=== PATIENT | female | born 1970 | race Caucasian/White ===

== ENCOUNTER → 2017-12-27 09:54 | Outpatient (CLI) | payer OTHER, SELFPAY ==
[2017-12-27 12:38] LABS: HIV - WCH Non-Reactive (Nonreactive)
[2017-12-27 14:52] LABS: Chlamydia Trachomatis by PCR Negative (Negative); Neisserai gonorrhoeae by PCR Negative (Negative); Probe Check PASS; Sample Adequacy Control PASS; Specimen Processing Control PASS
[2017-12-28 11:18] LABS: HEPATITIS B SURFACE AG Negative (Negative); HSV 1 IgG < 0.91 index (0.00-0.90); HSV 2 IgG > 23.60 index (0.00-0.90)
[2018-01-01 11:27] LABS: HPV Reflexed? NOT INDICATED
[2018-01-03 02:33] LABS: Rapid Plasmin Reagin (RPR) NONREACTIVE (NONREACTIVE)
== END ==
PROVIDERS: Visit Provider Obstetrics & Gynecology
DX: Z12.4 Encounter for screening for malignant neoplasm of cervix (principal); Z11.3 Encounter for screening for infections with a predominantly sexual mode of transmission
CPT/HCPCS: 36415; 86592; 86695; 86696; 86703; 87340; 87491; 87591; 88175; G0145

== ENCOUNTER → 2017-12-27 10:35 | Outpatient (CLI) | payer OTHER, SELFPAY ==
--- NOTE | 2017-12-27 10:39 | BI_ITS ---
MAMMOGRAPHY - BILATERAL SCREENING 3-D NILS SYNTHESIS REASON FOR EXAM: Female, 47 years old. Bilateral Screening 3-D tomosynthesis PERTINENT HISTORY: No significant family history. TECHNIQUE: 2-D mammograms and 3-D Nils synthesis of the breast (s) were performed. CAD was performed. COMPARISON: None. FINDINGS: The breast composition is heterogeneously dense that can obscure small breast masses. No dense spiculated masses or suspicious microcalcifications are identified. No architectural distortion is identified. There is no skin thickening or retraction. There has been no significant change since the prior study. BI/SCREENING MAMM (CAD), BILAT IMPRESSION: No mammographic signs of malignancy. Routine yearly mammograms recommended. ASSESSMENT CATEGORY: BIRADS Category 1: Negative. A letter regarding these results will be sent to the patient by the facility within 30 days. FOLLOW UP RECOMMENDATION: Yearly follow up mammogram recommended. (A) Approximately 10% of breast cancers are not detected by mammography. A normal mammogram should not delay biopsy of a clinically suspicious abnormality. Electronically Signed: Maciel Byrd MD at 16:10 EDT , Service support ,
== END ==
PROVIDERS: Visit Provider Obstetrics & Gynecology
DX: Z12.31 Encounter for screening mammogram for malignant neoplasm of breast (principal)
CPT/HCPCS: 77063; 77067

== ENCOUNTER → 2018-01-07 18:36 | Outpatient (CLI) | payer OTHER, SELFPAY ==
[2018-01-11 11:15] LABS: HPV Reflexed? NOT INDICATED
== END ==
PROVIDERS: Visit Provider Obstetrics & Gynecology
DX: Z12.4 Encounter for screening for malignant neoplasm of cervix (principal)
CPT/HCPCS: 88175; G0145

== ENCOUNTER → 2018-07-07 10:03 | Outpatient (CLI) | payer OTHER, SELFPAY ==
[2018-07-07 10:53] LABS: Anion Gap 8 (5-15); BUN 14 mg/dL (7-18); BUN/Creat Ratio 18.2 RATIO (10-20); Calcium,Total 8.7 mg/dL (8.5-10.1); Chloride 106 mmol/L (98-107); Creatinine, Serum 0.77 mg/dL (0.55-1.02); EST Glomerular Filtration Rate 86 mL/min (>60); Est Glom Filt Rate - Afr Amer 104 mL/min (>60); Free T3 2.5 pg/mL (2.18-3.98); Glucose 91 mg/dL (74-106); Potassium 4.5 mmol/L (3.5-5.1); Sodium Level 142 mmol/L (136-145); Thyroid Stim Hormone (TSH) 0.91 uIU/mL (0.358-3.74)
== END ==
LOC: LAB 10:07
PROVIDERS: Family Provider Nurse Practitioner Family; PCP Nurse Practitioner Family; Referring Provider Nurse Practitioner; Visit Provider Nurse Practitioner
DX: E03.9 Hypothyroidism, unspecified (principal); R53.81 Other malaise; R53.82 Chronic fatigue, unspecified
CPT/HCPCS: 36415; 80048; 84439; 84443; 84481

== ENCOUNTER → 2020-07-15 09:31 | Outpatient (CLI) | payer OTHER, SELFPAY ==
[2020-07-15 09:09] VITALS: BMI 26.5
[2020-07-15 12:22] LABS: Absolute Lymphocyte Count 0.83 X10^3/uL (0.83-4.51); Absolute Neutrophil Count 2.3 X10^3/uL (2.0-7.7); Basophil# 0.01 X10^3/uL; Basophil% 0.3 % (0-1); Eosinophil# 0.03 X10^3/uL; Eosinophils% 0.9 % (0-5); Hematocrit 42.6 % (37-47); Hemoglobin 13.5 g/dL (12.0-15.0); Lymphocyte # 0.83 X10^3/ul (4.0); Lymphocyte % 24.5 % (19-41); Mean Corp Hgb Conc 31.7 g/dL (32-36); Mean Corpuscular Hgb 30.2 pg (27.0-32.0); Mean Corpuscular Volume 95.3 fL (81-99); Mean Platelet Vol. 10.3 fl (6.2-12.0); Monocyte# 0.26 X10^3/uL; Monocyte% 7.7 % (0-10); NRBC Flagged by Analyzer 0 % (0-5); Neutrophil # 2.25 X10^3/uL (2.7-7.7); Neutrophil % 66.3 % (47-70); Platelet Count 301 K/mm3 (150-450); RBC Distribution Width CV 12.5 % (11.6-14.6); RBC Distribution Width SD 44.3 fl (35.1-43.9); Red Blood Count 4.47 M/mm3 (4.2-5.4); White Blood Count 3.4 K/mm3 (4.4-11.0)
[2020-07-15 12:26] LABS: AST(SGOT) 10 U/L (15-37); Alanine Aminotransfer ALT/SGPT 17 U/L (13-56); Albumin, Serum 3.6 g/dL (3.2-5.0); Alkaline Phosphatase 65 U/L (45-117); Anion Gap 5 (5-15); BUN 14 mg/dL (7-18); BUN/Creat Ratio 19.2 RATIO (10-20); Calcium,Total 8.6 mg/dL (8.5-10.1); Chloride 106 mmol/L (98-107); Cholesterol 190 mg/dL (200); Creatinine, Serum 0.73 mg/dL (0.55-1.02); EST Glomerular Filtration Rate 91 mL/min (>60); Est Glom Filt Rate - Afr Amer 110 mL/min (>60); Globulin 3.5 g/dL (2.2-4.2); Glucose 92 mg/dL (74-106); High Density Lipoprotein 61 mg/dL; Potassium 4.2 mmol/L (3.5-5.1); Protein, Total 7.1 g/dL (6.4-8.2); Sodium Level 139 mmol/L (136-145); T4 Free Direct 1.48 ng/dL (0.76-1.46); Thyroid Stim Hormone (TSH) 7.69 uIU/mL (0.358-3.74); Triglycerides 126 mg/dL; Very Low Density Lipoprotein 25 mg/dL (5-40)
== END ==
LOC: BIMLAB 09:33
PROVIDERS: PCP Nurse Practitioner Family; Referring Provider Internal Medicine Endocrinology, Diabetes & Metabolism; Visit Provider Internal Medicine Endocrinology, Diabetes & Metabolism
DX: E03.9 Hypothyroidism, unspecified (principal)
CPT/HCPCS: 36415; 80053; 80061; 84439; 84443; 85025

== ENCOUNTER → 2020-12-16 | Outpatient (CLI) | payer OTHER, SELFPAY ==
[2020-07-15 09:09] VITALS: BMI 26.5
[2020-12-19 07:06] LABS: Chlamydia By Nucleic Acid AMP Negative (Negative)
[2020-12-19 16:31] LABS: Gonococcus By Nucleic Acid AMP Negative (Negative)
[2020-12-20 09:43] LABS: HPV APTIMA, High Risk Negative (Negative)
== END | disposition home or self-care (01) ==
LOC: LABSPEC 11:07
PROVIDERS: PCP Nurse Practitioner Family; Visit Provider Obstetrics & Gynecology
DX: Z12.4 Encounter for screening for malignant neoplasm of cervix (principal)
CPT/HCPCS: 87491; 87591; 87624; 88175; G0145

== ENCOUNTER → 2020-12-29 08:44 | Outpatient (CLI) | payer OTHER, SELFPAY ==
[2020-07-15 09:09] VITALS: BMI 26.5
[2020-12-29 10:03] LABS: Hemoglobin A1c 5.2 % (3.8-5.6)
[2020-12-29 10:09] LABS: Cholesterol 217 mg/dL (200); High Density Lipoprotein 64 mg/dL; Triglycerides 77 mg/dL; Very Low Density Lipoprotein 15 mg/dL (5-40)
[2020-12-29 12:05] LABS: HIV - WCH Non-Reactive (Nonreactive); Hepatitis B Surface Antigen Non-Reactive (Nonreactive); Hepatitis C Antibody Non-Reactive (Nonreactive); Syphilis Antibodies Non-reactive
== END ==
LOC: LAB 08:48
PROVIDERS: PCP Nurse Practitioner Family; Referring Provider Obstetrics & Gynecology; Visit Provider Obstetrics & Gynecology
DX: Z01.89 Encounter for other specified special examinations (principal)
CPT/HCPCS: 36415; 80061; 83036; 86703; 86780; 86803; 87340

== ENCOUNTER → 2021-01-16 | Outpatient (CLI) | payer OTHER, SELFPAY ==
[2020-07-15 09:09] VITALS: BMI 26.5
== END | disposition home or self-care (01) ==
LOC: LABSPEC 13:48
PROVIDERS: PCP Nurse Practitioner Family; Visit Provider Obstetrics & Gynecology
DX: N39.46 Mixed incontinence (principal)
CPT/HCPCS: 87077; 87086; 87088

== ENCOUNTER → 2021-02-16 17:20 | Outpatient (CLI) | payer OTHER, SELFPAY ==
[2020-07-15 09:09] VITALS: BMI 26.5
--- NOTE | 2021-02-16 16:26 | BI_ITS ---
MAMMOGRAPHY - BILATERAL SCREENING REASON FOR EXAM: Female, 50 years old. Routine annual screening examination. PERTINENT HISTORY: Non-contributory. TECHNIQUE: Digital bilateral breast nils (3D mammographic acquisition) in the CC and MLO projections. 2-D mediolateral oblique (MLO) and craniocaudad (CC) views of both breasts were obtained. CAD: Full Field Digital Mammography with Computer Added Detection was performed. COMPARISON: Comparison is made with prior study dated 12/27/2017. FINDINGS: Breast Composition: The breasts are heterogeneously dense, which may obscure small masses. I suspect a 1.8 cm x 1.8 cm well-defined nodule in the central deep portion of the left breast. I also suspect a 1.4 cm well-defined nodule in the deep central portion of the right breast. Correlation with ultrasound is recommended. No other significant abnormalities are identified. BI/SCRN MAMM (CAD)W/NILS BILAT IMPRESSION: Findings suggestive of well-defined nodules in the central deep portions of both breasts as described. Correlation with ultrasound is recommended. ASSESSMENT CATEGORY: BIRADS Category 0: Incomplete. Need additional imaging evaluation. A letter regarding these results will be sent to the patient by the facility within 30 days. Approximately 10% of breast cancers are not detected by mammography. A normal mammogram should not delay biopsy of a clinically suspicious abnormality. [id number] Electronically Signed: Lane Moreland MD at 8:18 EDT , Service support ,
== END ==
PROVIDERS: Referring Provider Obstetrics & Gynecology; Visit Provider Obstetrics & Gynecology
DX: Z12.31 Encounter for screening mammogram for malignant neoplasm of breast (principal)
CPT/HCPCS: 77063; 77067

== ENCOUNTER → 2021-03-08 12:50 | Outpatient (CLI) | payer OTHER, SELFPAY ==
[2020-07-15 09:09] VITALS: BMI 26.5
--- NOTE | 2021-03-08 12:58 | US_ITS ---
STUDY: ULTRASOUND BREAST - RIGHT REASON FOR EXAM: Female, 50 years old. Abnormal screening mammogram. TECHNIQUE: Axial and longitudinal images of the RIGHT breast were performed with a high resolution ultrasound transducer. # OF IMAGES: 16 COMPARISON: Comparison is made with prior mammogram dated 02/16/2021. FINDINGS: RIGHT Breast: The mammographic abnormality corresponds to a 1.6 cm x 1.8 cm x 1 cm cyst at the 8 o''clock position of the breast at 3 cm from the nipple. IMPRESSION: 1.6 cm x 1.8 cm x 1 cm cyst at the 8 o''clock position of the breast at 3 cm from the nipple. ASSESSMENT CATEGORY: BIRADS Category 2: Benign. A letter regarding these results will be sent to the patient by the facility within 30 days. Electronically Signed: Lane Moreland MD at 15:52 EDT , Service support , STUDY: ULTRASOUND BREAST - LEFT REASON FOR EXAM: Female, 50 years old. Abnormal screening mammogram. TECHNIQUE: Axial and longitudinal images of the LEFT breast were performed with a high resolution ultrasound transducer. # OF IMAGES: 16 COMPARISON: Comparison is made with prior mammogram dated 02/16/2021. FINDINGS: LEFT Breast: The mammographic abnormality corresponds to a 1.8 cm x 1.8 cm x 0.8 cm cyst in the retroareolar region. US/Breast Limited Unilateral IMPRESSION: 1.8 cm x 1.8 cm x 0.8 cm cyst in the retroareolar region of the breast. ASSESSMENT CATEGORY: BIRADS Category 2: Benign. A letter regarding these results will be sent to the patient by the facility within 30 days. Electronically Signed: Lane Moreland MD at 15:53 EDT , Service support ,
== END ==
LOC: OPUS 12:51
PROVIDERS: Referring Provider Obstetrics & Gynecology; Visit Provider Obstetrics & Gynecology
DX: R92.2 Inconclusive mammogram (principal)
CPT/HCPCS: 76642

== ENCOUNTER 2021-04-13 07:39 | Day surgery (SDC) | payer OTHER, SELFPAY ==
[2020-07-15 09:09] VITALS: BMI 26.5
[2021-04-13] VITALS (11 sets, daily range): BP systolic 103–125; BP diastolic 61–85; PULSE 55–76; RESP 16–18; TEMP 36.3–36.6; O2SAT 96–100; BMI 27.3
--- NOTE | 2021-04-13 08:20 | HP.PCM.OB_ITS ---
History and Physical Date of Admission: 04/13/21 Surgical History and Physical Date: 04/13/2021 Name: ROSETTA NINA Age: 50 Date of : 1970 Rosetta Nina, a 50 year old female 2 0 0 0 2, presents for Transvaginal tape, cystoscopy, possible anterior repair, possible posterior repair on April 13, 2021 at 8:30. -- Pt reports inability to hold urine in for the past 3-4 months.. Denies drug use and smoking. No changes in her health since last visit. Scheduled for tape sling, cysto, possible A &/or P repair. Consents signed. No changes in her health since her last visit. MEDICATIONS HISTORY: Patient is also takin. 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); Review of Systems: GENERAL - Denies fever, or chills SKIN - Denies skin changes EYES - Denies visual changes EARS - Denies difficulty hearing NOSE - Denies nasal congestion or bleeding MOUTH - Denies sore throat or difficulty swallowing NECK - Denies pain or swelling RESPIRATORY - Denies shortness of breath or wheezing CARDIOVASCULAR - Denies palpitations or chest pain GASTROINTESTINAL - Denies nausea, vomiting, diarrhea, constipation GENITOURINARY - inability to hold urine MUSCULOSKELETAL - Denies joint or muscle pain NEUROLOGICAL - Denies localized numbness or weakness PSYCHIATRIC - Denies depression or anxiety ENDOCRINE - Denies heat or cold intolerance, weight loss or gain HEMATO-IMMUNOLOGIC - Denies excessive bleeding with cuts SOCIAL HISTORY: Alcohol Use - beer and almost daily Smoking - denies smoking Diet - no special diet Lifestyle - 2006 Exercise - active work Seat Belt Use - always Employer - [employer] 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 09/09/2003 Tubal ; - 2. 09/09/2006 endometrial ablation ; - PHYSICAL EXAM BP- 108/72 Sitting, Right arm, regular cuff Weight- 161.41520 lbs Height- 63 inch BMI:[id number] CONSTITUTIONAL - NAD, well nourished, and well developed SKIN - No rash, lesions, or ulcers HEENT - Normocephalic, PERRLA, EOMI NECK - No nodes, no nuchal rigidity and thyroid normal size and texture LYMPH NODES - Palpation of lymph nodes in neck and groins within normal limits ABDOMEN - Without hepatosplenomegaly, distention, masses, rebound, or guarding; normal bowel sounds; no hernias EXTREMITIES - No edema or calf tenderness NEUROLOGICAL - Cranial nerves II-XII grossly intact PSYCHIATRIC - A and O to time, place, person, mood and affect External Genital Vagina - positive cough test, post void 15cc Urethra/Urethral Meatus - positive cough test, post void 15cc Bladder - grade 1 cystocele Vagina - vaginal buck are pink and moist without loss of rugae and no evidence of h Cervix - without cervical motion tenderness and has normal size and features without evident lesions Uterus - 5-6 cm in size, mobile and nontender Adnexa - clear without masses or tenderness Rectal - no prolapse Pap - deferred ASSESSMENT/PLAN: 1. 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 No nocturia. Has attempted fluid restriction with no success Positive cough test, post void residual wnl. Educated pt on findings and tx of stress and urge incontinence. Discussed medical vs surgical management pt elects for TVT, r/b/a discussed Scheduled for TVT, cystoscopy, possible anterior posterior repair 2. Encounter For Other Preprocedural Examination Scheduled for TVT, cystoscopy, possible anterior posterior repair. Educated patient on risk benefits alternatives including but not limited to bladder injury, home-going Goodman catheter, failure, hematoma and bleeding All questions answered. Consent signed. To continue home medications. No eating after midnight. Discussed intercourse restrictions, lifting restriction, tub bath restriction. 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 Discussed restrictions
[2021-04-13] MEDS: Lactated Ringers 1,000 ML 100 ML IV ×2 (08:33→10:40)
[2021-04-13 08:38] LABS: Hematocrit 44.3 % (37-47); Hemoglobin 14.5 g/dL (12.0-15.0); Mean Corp Hgb Conc 32.7 g/dL (32-36); Mean Corpuscular Hgb 30.8 pg (27.0-32.0); Mean Corpuscular Volume 94.1 fL (81-99); Mean Platelet Vol. 9.6 fl (6.2-12.0); Platelet Count 343 K/mm3 (150-450); RBC Distribution Width CV 12.1 % (11.6-14.6); RBC Distribution Width SD 42.2 fl (35.1-43.9); Red Blood Count 4.71 M/mm3 (4.2-5.4); White Blood Count 5.1 K/mm3 (4.4-11.0)
[2021-04-13] MEDS: Cefotetan 2 GM in 0.9% NS 100 ML IV (09:26)
[2021-04-13] MEDS: Lidocaine 1% /Epi 1:100 (20ml) 20 ML Vial (09:54)
--- NOTE | 2021-04-13 10:45 | DCINST_ITS ---
Discharge Instructions Diet Discharge Diet: No restrictions Activity Discharge Activity: Return to Normal Activity, May Drive and May Shower May resume sexual activity in: 4-6 weeks Weight Bearing Status: Weight bearing as tolerated Dressing / Incision Call your doctor if your incision/area has: Continuous Slow Oozing and Foul Smelling Discharge Call your doctor if you observe: Fever of 101 or Higher, Shortness of breath and Chest pain Follow Up Care Please Follow Up With: Jose Archer MD When: 2 weeks postoperatively Test Results: Test results from this visit will be discussed in further detail at your follow-up appointment, if applicable. Discharge Plan Admission Primary Reason for Your Visit: stress incontinence Attending Provider: Jose Archer Primary Care Provider: Lesvia Aguilar Discharge Orders/Prescriptions Prescriptions: New oxycodone 5 mg Tablet 5 mg PO Q6H PRN PRN (Reason: Pain Score 6-10/10) 3 Days Qty: 12 RF: 0 Continued levothyroxine 150 mcg tablet 150 mcg PO DAILY Qty: 30 RF: 10 Other Ambulatory Orders: Thyroid Stim Hormone (TSH) (Routine) Timeframe: [id number] Facility: [facility] - Location: Laboratory Ordered By: Dr. Benito Cornell Referrals / Follow Up: Lesvia Aguilar PA [Primary Care Provider] - Disposition Disposition (needs filled in before D/C Order can be placed): Home, Self Care
--- NOTE | 2021-04-13 10:45 | PCM.OPRPT ---
Report of Operation Date of Procedure: 04/13/21 Pre-Operative Diagnosis: Stress urinary incontinence Post-Operative Diagnosis: Stress urinary incontinence Surgery/Procedure Performed:: Transvaginal tape, cystoscopy Description of Surgical Findings:: Surgeon: Jose Archer MD anesthesia: General EBL: 20 cc Urine output: 25 cc IV fluids: 1000 cc Complications: None Specimen: None Findings: No cystocele or rectocele noted. Post procedure cystoscopy with no pathology including no signs of mesh or bladder perforation Consent: Patient with stress urinary incontinence in need of transvaginal tape and cystoscopy. Patient understood the risk of the procedure include but are not limited to visceral or vascular injury, prolonged hospitalization, blood loss and need for transfusion, reoperation, mesh complications, and need for home-going Goodman catheter. Patient state understanding wish to proceed. All questions were answered consent was signed. Procedure: Patient brought back to the OR where general anesthesia found to be adequate. 2 g of cefotetan given for infection prophylaxis. Patient was prepared and draped in dorsolithotomy position with yellowfin stirrups. A weighted speculum is placed in the posterior aspect of vagina. Above findings were noted. Goodman catheter was inserted. 1% lidocaine with epi was injected at the incision site for Mosheim dissection and hemostasis. Vaginal mucosal 1.5 cm incision was made 1 cm cephalad to the urethra at the midline. Vaginal mucosa and periurethral fascia were carefully dissected lateral to the urethra, 1 to 2 cm cephalad. Good hemostasis was noted. Pubic symphysis was marked at the midline and suprapubic trocar sites were measured 2 cm from the midline. Goodman catheter stylette was used to deviate the bladder contralateral to trocar site placement respectively. TVT exact device was opened. The bladder deviated to the contralateral side TVT trocar was inserted into the TVT sheath, TVT trocar and sheath inserted into right portion of vaginal incision just lateral to the urethra and trocar guided retropubically in the retropubic space toward premarked right suprapubic trocar abdominal skin marking. After trocar and sheath perforated skin trocar was removed from trocar sheath. In a similar fashion the trocar sheath for the left portion was loaded on the trocar. Trocar and trocar sheath were placed in the left portion of vaginal incision just lateral to the urethra and guided through the retropubic space toward the premarked suprapubic skin marking. At time of skin perforation trocar removed from sheath. Goodman catheter removed and cystoscopy performed with above findings. No new pathology no signs of mesh and no signs of perforation. Bladder drained. Trocar sheaths were then pulled through the skin incisions in their entirety. Sling appropriately adjusted. Trocar sheaths were cut bilaterally and implant sheaths removed. Good hemostasis was noted, sling placement appropriate. Vaginal mucosa reapproximated in a continuous running locked fashion. Good hemostasis noted. Suprapubic skin incisions closed with skin glue. Good hemostasis noted. All counts correct x2. Patient tolerated procedure well was brought to recovery in a stable condition men's furnishings salesperson: Cynthia Swanson
--- NOTE | 2021-04-13 16:38 | SUR.PHASEII ---
AT 1510, STRAIGHT CATHED FOR 450 CC CLEAR YELLOW URINE. ENCOURAGED TO DRINK FLUIDS. TWO CANS OF GATORADE GIVEN
== END 2021-04-13 17:30 | disposition home or self-care (01) ==
LOC: SDC 07:39 → AC 07:40
PROVIDERS: PCP Physician Assistant Medical; Referring Provider Obstetrics & Gynecology; Visit Provider Obstetrics & Gynecology
PROC: (CPT 57260; principal; 2021-04-13 09:15)
DX: N39.46 Mixed incontinence (principal); E03.9 Hypothyroidism, unspecified; Z79.899 Other long term (current) drug therapy
CPT/HCPCS: 57288; 85027; 86850; 86900; 86901; 87426; C9803; J7120; A4216; J2405

== ENCOUNTER → 2021-07-20 14:40 | Outpatient (CLI) | payer OTHER, SELFPAY ==
[2021-07-20 17:02] LABS: AST(SGOT) 9 U/L (15-37); Alanine Aminotransfer ALT/SGPT 16 U/L (13-56); Albumin, Serum 3.7 g/dL (3.2-5.0); Alkaline Phosphatase 58 U/L (45-117); Anion Gap 4 (5-15); BUN 14 mg/dL (7-18); BUN/Creat Ratio 18.6 RATIO (10-20); Chloride 105 mmol/L (98-107); Creatinine, Serum 0.75 mg/dL (0.55-1.02); EST Glomerular Filtration Rate 87 mL/min (>60); Est Glom Filt Rate - Afr Amer 105 mL/min (>60); Globulin 3.6 g/dL (2.2-4.2); Glucose 94 mg/dL (74-106); Potassium 4.5 mmol/L (3.5-5.1); Protein, Total 7.3 g/dL (6.4-8.2); Sodium Level 138 mmol/L (136-145); Thyroid Stim Hormone (TSH) 2.16 uIU/mL (0.358-3.74)
== END ==
LOC: BIMLAB 14:41
PROVIDERS: PCP Physician Assistant Medical; Referring Provider Internal Medicine Endocrinology, Diabetes & Metabolism; Visit Provider Internal Medicine Endocrinology, Diabetes & Metabolism
DX: E03.9 Hypothyroidism, unspecified (principal)
CPT/HCPCS: 36415; 80053; 84439; 84443

== ENCOUNTER → 2025-08-26 | Outpatient (CLI) | payer OTHER, SELFPAY ==
[2025-08-30 15:08] LABS: HPV APTIMA, High Risk Negative (Negative)
== END | disposition home or self-care (01) ==
LOC: LABSPEC 11:18
PROVIDERS: PCP Physician Assistant; Visit Provider Nurse Practitioner Family
DX: Z12.4 Encounter for screening for malignant neoplasm of cervix (principal)
CPT/HCPCS: 87624; 88175; G0145